=== PATIENT | male | born 1930 | race Caucasian/White ===

== ENCOUNTER 2019-02-24 11:23 | Outpatient (CLI) | payer OTHER ==
[~2019-02-24] VITALS: Ht 185.4 cm; Wt 75.0 kg
[2019-02-24 14:01] VITALS: Ht 185.4 cm; Wt 75.0 kg
--- NOTE | 2019-02-24 14:19 | NUR ---
1405 BLOOD CHECKED AT BEDSIDE BY THIS NURSE AND BENITO OLSEN RN INITIATED AT 50/CC/HR BY IV INITIATED LT ARM WITH 20 G JELCO.
--- NOTE | 2019-02-24 14:30 | NUR ---
1430 PT CONTINUES TO EAT LUNCH, RATE INCREASED TO 175/CC/HR
--- NOTE | 2019-02-24 15:51 | NUR ---
1530 PT PULLED OUT HIS IV WHILE GOING OUT TO BATHROOM ON HIS OWN, RESITED AFTER PT VOIDED TO RIGHT ARM TO COMPLETE BLOOD. URINAL PROVIDED TO PT AND REQUESTED PT TO CALL NURSE WITH ANY REQUESTS.
--- NOTE | 2019-02-24 16:24 | NUR ---
9499 ROOM CHECK, BLOOD GOING WELL, PT DENIES PROBLEMS, PT'S RIDE NOTIFIED OF APPROXIMATE TIME OF BLOOD PRODUCT COMPLETION.
--- NOTE | 2019-02-24 17:08 | NUR ---
1705 BLOOD HAS COMPLETED, LINE BEING FLUSHED WITH NS.
--- NOTE | 2019-02-24 17:29 | NUR ---
1725 IV HAS CLEARED DENIES PROBLEMS WITH TRANSFUSION, IV DC'D WITH CATH INTACT. DC INSTS REVIEWED AWAITING ON RIDE HOME.
--- NOTE | 2019-02-24 18:02 | NUR ---
1800 UP TO BR VOIDS QS. PT'S RIDE IS HERE RELEASED IN OWN WC.
== END 2019-02-24 18:00 | disposition home or self-care (01) ==
LOC: D.OPS 11:23
PROVIDERS: ATTEND Internal Medicine Geriatric Medicine
DX: D64.9 Anemia, unspecified (principal)